=== PATIENT | female | born 1980 | race Caucasian/White ===

== ENCOUNTER → 2024-01-10 | Day surgery (SDC) | payer OTHER ==
[~2024-01-10] MED LIST: ACETAMINOPHEN 1000 MG/100 ML 100 ML IV ONE; ACETAMINOPHEN/CODEINE 300MG - 30MG TAB ONE; DEXAMETHASONE SOD PHOS INJ 4 MG/ML SDV ONE; EPHEDRINE SULFATE INJ 50 MG/ML VIAL ONE; FENTANYL CITRATE/PF 100MCG/2 ML INJ ONE; LACTATED RINGER'S 1,000 ML ONE; LIDOCAINE HCL 2% LOCAL INJ 5 ML SDV VIAL INJ ONE; PROPOFOL IV EMULSION 10 MG/ML 20 ML VIAL ONE; SERTRALINE HCL50 MG PO; SEVOFLURANE INHAL SOLN 250 ML PEN BTL ONE
[2024-01-10 16:41] VITALS: TEMP 97
[2024-01-10] MEDS: ACETAMINOPHEN/CODEINE 300MG - 30MG TAB PO ONE (16:55)
[2024-01-10 17:10] VITALS: BP 127/82; PULSE 97; RESP 18; O2SAT 97
== END | disposition home or self-care (01) ==
LOC: OR 08:43
PROVIDERS: ATTEND Otolaryngology Otolaryngology/Facial Plastic Surgery
DX: H72.91 Unspecified perforation of tympanic membrane, right ear (principal); H90.71 Mixed conductive and sensorineural hearing loss, unilateral, right ear, with unrestricted hearing on the contralateral side; F41.9 Anxiety disorder, unspecified; F32.A Depression, unspecified; F17.290 Nicotine dependence, other tobacco product, uncomplicated; Z79.899 Other long term (current) drug therapy
CPT/HCPCS: 15769; 69610; J0131; J1100; J2003; J2704; J3010; J7121